=== PATIENT | female | born 1995 | race Caucasian/White ===

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

== ENCOUNTER 2017-01-16 15:12 | Emergency (ER) | payer OTHER ==
--- NOTE | 2017-01-16 16:14 | ER Document Report ---
ED Medical Screen (RME) - General Chief Complaint: Altered Mental Status Stated Complaint: ALTERED Time Seen by Provider: 01/16/17 16:11 Notes: Is a 21-year-old female, past medical history seizures, autism, presents with behavioral changes over the past 2 days since going to her grandmother's house. Mom says that she will not open up her eyes even with painful stimulation. She had an episode of this last year when school ended. She saw her neurologist last week and is scheduled for an MRI in 2 days and a 72 hour EEG next weekend. PE: Eye fluttering, moving all 4 extremities, will not open eyes I have greeted and performed a rapid initial assessment of this patient. A comprehensive ED assessment and evaluation of the patient, analysis of test results and completion of the medical decision making process will be conducted by additional ED providers. TRAVEL OUTSIDE OF THE [place] IN LAST 30 DAYS: No - Related Data Allergies/Adverse Reactions: No Known Allergies Allergy (Verified 01/16/17 15:19) Past Medical History Neurological Medical History: Reports: Hx Seizures Renal/ Medical History: Denies: Hx Peritoneal Dialysis Physical Exam - Vital signs Vitals: Temp Pulse Resp BP Pulse Ox 99.7 F 106 H 16 141/84 H 99 01/16/17 15:19 01/16/17 15:19 01/16/17 15:19 01/16/17 15:19 01/16/17 15:19 Course - Vital Signs Vital signs: Temp Pulse Resp BP Pulse Ox 99.7 F 106 H 16 141/84 H 99 01/16/17 15:19 01/16/17 15:19 01/16/17 15:19 01/16/17 15:19 01/16/17 15:19
[2017-01-16 16:51] LABS: ABSOLUTE EOSINOPHILS # (AUTO) 0.3 10^3/uL (0.0-0.6); ABSOLUTE LYMPHOCYTES (AUTO) 2.5 10^3/uL (0.5-4.7); ABSOLUTE MONOCYTES (AUTO) 0.6 10^3/uL (0.1-1.4); ABSOLUTE NEUT (AUTO) 4.5 10^3/uL (1.7-8.2); BASOPHILS % (AUTO) 0.3 % (0-2); EOSINOPHILS % (AUTO) 3.6 % (0-6); HEMATOCRIT 41.2 % (36.0-47.0); HGB HCT DIFFERENCE 0.8; LYMPHOCYTES % (AUTO) 31.2 % (13-45); MEAN CORPUSCULAR HEMOGLOBIN 32.2 pg (27.0-33.4); MEAN CORPUSCULAR HGB CONC 33.9 g/dL (32.0-36.0); MEAN CORPUSCULAR VOLUME 95 fl (80-97); MONOCYTES % (AUTO) 7.1 % (3-13); RED BLOOD COUNT 4.35 10^6/uL (3.72-5.28); SEGMENTED NEUTROPHILS % (AUTO) 57.8 % (42-78); WHITE BLOOD COUNT 7.9 10^3/uL (4.0-10.5)
[2017-01-16 17:02] LABS: APPEARANCE,URINE CLEAR; BILIRUBIN,URINE NEGATIVE (NEGATIVE); GLUCOSE, URINE NEGATIVE (NEGATIVE); KETONES,URINE NEGATIVE (NEGATIVE); LEUKOCYTE ESTERASE,URINE NEGATIVE (NEGATIVE); NITRITE,URINE NEGATIVE (NEGATIVE); PROTEIN,URINE NEGATIVE (NEGATIVE); URINE SPECIFIC GRAVITY 1.016; UROBILINOGEN,URINE NEGATIVE mg/dL (<2.0)
[2017-01-16 17:05] LABS: ALANINE AMINOTRANSFERASE 80 U/L (5-35); ALBUMIN 4.2 g/dL (3.7-5.6); ALKALINE PHOSPHATASE 96 U/L (50-135); ANION GAP 11 (5-19); ASPARTATE AMINO TRANSFERASE 40 U/L (5-30); BILIRUBIN,DIRECT 0.3 mg/dL (0.0-0.4); BILIRUBIN,TOTAL 0.4 mg/dL (0.2-1.3); BLOOD UREA NITROGEN 10 mg/dL (7-20); CALCIUM 9.7 mg/dL (8.4-10.2); CARBON DIOXIDE 27 mmol/L (22-30); CHLORIDE 103 mmol/L (98-107); CREATININE RESULT 0.55 mg/dL (0.52-1.25); GLUCOSE 89 mg/dL (75-110); POTASSIUM 4.4 mmol/L (3.6-5.0); SODIUM 141.2 mmol/L (137-145); TOTAL PROTEIN 7.4 g/dL (6.3-8.2)
[2017-01-16 17:08] LABS: ALCOHOL < 10 mg/dL (NONE DETECTED)
[2017-01-16 17:11] LABS: URINE BARBITURATES SCREEN NEGATIVE; URINE METHADONE SCREEN NEGATIVE; URINE OPIATES LOW NEGATIVE; URINE PHENCYCLIDINE SCREEN NEGATIVE
--- NOTE | 2017-01-16 18:01 | ER Document Report ---
ED General - General Chief Complaint: Altered Mental Status Stated Complaint: ALTERED Time Seen by Provider: 01/16/17 16:11 Notes: Patient is being seen for more and more difficulty waking up. She has been experiencing this problem sporadically over the last 4-5 months. She had an especially difficult time waking up today and the family says that they could not get her to open her eyes and be awake, even with getting her up and walking her around, she remained asleep. She did not wake up until she was in her bed here and they were at the bedside to draw her blood. She sees a local neurologist, Dr. Christie, because she has a history of seizures, migraine headaches, and autism. He has also been seeing her for these episodes of excessive sleepiness. Patient is scheduled for an MRI for Saturday followed by a 72 hour EEG next week. Family says that Dr. Christie was thinking her excessive sleepiness was related to medications and some of her medications were stopped or altered. Also, patient just had Valium 5 mg added to her medications last week, she took one early this morning. Patient is awake and oriented 3 at this time. She is able to stand up on her own and walk around without any difficulty. Does not have any specific complaints such as headache, etc. TRAVEL OUTSIDE OF THE [place] IN LAST 30 DAYS: No - Related Data Allergies/Adverse Reactions: No Known Allergies Allergy (Verified 01/16/17 15:19) Past Medical History - Social History Smoking Status: Never Smoker Chew tobacco use (# tins/day): No Frequency of alcohol use: None Drug Abuse: None Family History: Reviewed & Not Pertinent Neurological Medical History: Reports: Hx Migraine, Hx Seizures, Other - Autism - Immunizations Hx Diphtheria, Pertussis, Tetanus Vaccination: Yes Review of Systems - Review of Systems Notes: REVIEW OF SYSTEMS: CONSTITUTIONAL : Denies fever. EENT: Denies eye, ear, nose or mouth or throat pain or other symptoms. CARDIOVASCULAR: Denies chest pain. RESPIRATORY: Denies cough, chest congestion, or shortness of breath. GASTROINTESTINAL: Denies abdominal pain or nausea, vomiting, or diarrhea. GENITOURINARY: Denies difficulty or painful urinating, urinary frequency, blood in urine. MUSCULOSKELETAL: Denies back or neck pain. Denies joint pain or swelling. SKIN: Denies rash or skin lesions. NEUROLOGICAL: See HPI. Denies sensory loss or motor deficits. ALL OTHER SYSTEMS REVIEWED AND NEGATIVE. Physical Exam - Vital signs Vitals: Temp Pulse Resp BP Pulse Ox 99.7 F 106 H 16 141/84 H 99 01/16/17 15:19 01/16/17 15:19 01/16/17 15:19 01/16/17 15:19 01/16/17 15:19 Interpretation: Normal - Notes Notes: PHYSICAL EXAMINATION: GENERAL: Well-appearing, in no acute distress. Resting comfortably on the stretcher. Vital signs are all essentially normal. HEAD: Atraumatic, normocephalic. EYES: Pupils equal round and reactive to light, extraocular movements intact. NECK: Normal range of motion, supple. LUNGS: Breath sounds clear and equal bilaterally. HEART: Regular rate and rhythm without murmurs. ABDOMEN: Soft, nontender. No guarding or rebound. BACK: No tenderness throughout entire back. EXTREMITIES: Normal range of motion without pain. NEUROLOGICAL: Normal speech, normal gait. Can stand at the bedside and walk around without any assistance and has no problems keeping her balance. Normal sensory, motor, and reflex exams. Awake, alert, and oriented x3 (person, place , time). Cranial nerves normal. PSYCH: Normal mood, normal affect. SKIN: Warm, dry, no rashes. Course - Re-evaluation Re-evalutation: 01/16/17 18:34 Her workup is essentially normal. Trivial increase in LFTs pointed out to mother. UDS positive for benzos but no other substances. Negative alcohol. I called Dr. Christie and discussed the family's concerns and the patient's findings and we agreed that there will be no change in the current treatment plan as the patient has 2 major studies coming up in the next week or 10 days that will help in determining her treatment course. - Vital Signs Vital signs: Temp Pulse Resp BP Pulse Ox 99.7 F 79 16 114/65 97 01/16/17 15:19 01/16/17 18:19 01/16/17 18:19 01/16/17 18:19 01/16/17 18:19 - Laboratory Result Diagrams: 01/16/17 16:30 01/16/17 16:30 Laboratory results interpreted by me: 01/16/17 01/16/17 16:30 16:30 AST 40 H ALT 80 H Urine Ascorbic Acid 20 H Discharge - Discharge Clinical Impression: Altered mental status Qualifiers: Altered mental status type: somnolence Qualified Code(s): R40.0 - Somnolence Condition: Stable Disposition: HOME, SELF-CARE Additional Instructions: Altered Mental Status An altered mental status is a change in the normal functioning of the brain. This alteration of function can range from minor decreased brain function with some forgetfulness and confusion to complete loss of consciousness and coma. There are many possible causes of an altered mental status and include brain injuries such as trauma or strokes, problems with oxygen supply to the brain, fever and infections of the brain and/or elsewhere in the body, metabolic abnormalities such as low or high blood sugar, overdoses or excessive medication ingestion, and mental and psychiatric illnesses. Sometimes the altered mental status resolves and a definite cause is not determined. If a cause for your altered mental status was found, it has likely been corrected. Your evaluation has not shown any condition that requires that you be admitted to the hospital. It is believed that you are safe to leave and return to your home. If you have a return of your symptoms, you should return for re-evaluation. NORMAL EXAM AND WORKUP: At this time, your examination and workup show no significant abnormality. No significant abnormal physical findings were noted. All laboratory, EKG, and imaging (x-ray, CT scans, ultrasound) studies that were ordered show no significant abnormality. Although your examination and all studies that were ordered showed no significant abnormal finding, there are no examinations and no studies that are 100% accurate. There is always the possibility that some abnormality could exist and not be detected with physical examination or within the limits and capabilities of laboratory and other studies. You should return or follow up as you were instructed on your visit today for further evaluation if your symptoms do not resolve. I have spoken with Dr. Christie who recommends that you follow through with the plans for an MRI on Saturday and the 72 hour EEG next week. He does not recommend any change in medications or additional medications. FOLLOW-UP CARE: If you have been referred to a physician for follow-up care, call the physician s office for an appointment as you were instructed or within the next two days. If you experience worsening or a significant change in your symptoms, notify the physician immediately or return to the Emergency Department at any time for re-evaluation. Referrals: GIULIANA CHRISTIE MD [ACTIVE STAFF] - Follow up as needed
[2017-01-16 18:20] VITALS: BP 114/65
== END 2017-01-16 18:25 | disposition home or self-care (01) ==
LOC: ER 15:12
DX: R40.0 Somnolence (principal); F84.0 Autistic disorder; Z79.899 Other long term (current) drug therapy
CPT/HCPCS: 36415; 80053; 80307; 81001; 85025; 99284